=== PATIENT | female | born 1995 ===

== ENCOUNTER 2017-02-27 14:45 | Emergency (ER) | payer BC ==
[2017-02-27 16:52] VITALS: BP 129/77
--- NOTE | 2017-02-27 17:08 | UC ---
Skin Complaint HPI - HPI Summary HPI Summary: 21 yo female noted a pimple on her left leg 2 days ago when she awoke it was swollen/red and tender she squeezed it and a lot of pus was expressed feels much better no f/c no hx MRSA - History of Current Complaint Chief Complaint: UCSkin Time Seen by Provider: 02/27/17 17:01 Stated Complaint: BUMP ON LEG-INSECT BITE Hx Obtained From: Patient Hx Last Menstrual Period: 01/27/17 Onset/Duration: Gradual Onset, Lasting Days Onset Severity: Moderate Current Severity: Mild Pain Intensity: 1 Pain Scale Used: 0-10 Numeric Location: Other - left leg Character: Swelling, Redness Aggravating: Touch Associated Signs & Symptoms: Positive: Drainage, Tenderness - Allergy/Home Medications Allergies/Adverse Reactions: Allergies Allergy/AdvReac Type Severity Reaction Status Date / Time No Known Allergies Allergy Verified 02/27/17 16:52 Review of Systems Constitutional: Negative Skin: Negative Eyes: Negative ENT: Negative Respiratory: Negative Cardiovascular: Negative Gastrointestinal: Negative Genitourinary: Negative Motor: Negative Neurovascular: Negative Musculoskeletal: Negative Neurological: Negative Psychological: Negative All Other Systems Reviewed And Are Negative: Yes PMH/Surg Hx/FS Hx/Imm Hx Previously Healthy: Yes - Surgical History Surgical History: None - Family History Known Family History: Negative: Cardiac Disease, Hypertension, Diabetes - Social History Alcohol Use: Weekly Substance Use Type: None Smoking Status (MU): Never Smoked Tobacco Physical Exam Triage Information Reviewed: Yes Appearance: No Pain Distress, Well-Nourished, Ill-Appearing Vital Signs: Initial Vital Signs Temp 98.7 F 02/27/17 16:48 Pulse 77 02/27/17 16:48 Resp 16 02/27/17 16:48 BP 129/77 02/27/17 16:48 Pulse Ox 99 02/27/17 16:48 Eye Exam: Normal Eyes: Positive: Conjunctiva Clear ENT: Positive: Hearing grossly normal. Negative: Nasal congestion, Nasal drainage, Tonsillar exudate, Trismus, Muffled/hoarse voice Neck: Positive: Supple, Nontender, No Lymphadenopathy Respiratory: Positive: Lungs clear, Normal breath sounds, No respiratory distress, No accessory muscle use Cardiovascular: Positive: RRR, No Murmur Musculoskeletal: Positive: ROM Intact, No Edema Psychological Exam: Normal Skin Exam: Other - see image Course/Dx - Diagnoses Provider Diagnoses: left leg infection...resolved abscess with overlying cellulitis Discharge - Discharge Plan Condition: Stable Disposition: HOME Prescriptions: DOXYcycline CAP(*) [DOXYcycline 100MG CAP(*)] 100 mg PO BID #14 cap Patient Education Materials: Cellulitis (ED) Additional Instructions: recheck in 3 days if not markedly better warm soapy compresses 2-4 x day until better recheck for worsening symptoms Images Front/Back of Body, Lg ([place]): 1 - about 3cm erthema surrounding minute scab. not indurated or flutuant
== END 2017-02-27 17:13 | disposition home or self-care (01) ==
LOC: UCCORT 14:45
DX: L03.116 Cellulitis of left lower limb (principal)
CPT/HCPCS: 99202; G0463